=== PATIENT | male | born 1970 | race Caucasian/White ===

== ENCOUNTER 2020-04-16 13:51 | Emergency (ER) | payer OTHER ==
[~2020-04-16] VITALS: Ht 182.9 cm; Wt 90.7 kg
== END 2020-04-16 14:43 | disposition home or self-care (01) ==
LOC: ER 13:51
DX: S81.012A Laceration without foreign body, left knee, initial encounter (principal); W22.8XXA Striking against or struck by other objects, initial encounter; Y93.89 Activity, other specified; Y92.018 Other place in single-family (private) house as the place of occurrence of the external cause; Y99.8 Other external cause status

== ENCOUNTER 2020-09-16 15:36 | Outpatient (CLI) | payer OTHER | END 2020-09-16 15:52 | disposition home or self-care (01) | LOC: LAB 15:36 | DX: U07.1 COVID-19 (principal); R05 Cough; R06.02 Shortness of breath; R50.9 Fever, unspecified ==

== ENCOUNTER 2020-12-23 12:03 | Outpatient (CLI) | payer OTHER | END 2020-12-23 12:09 | disposition home or self-care (01) | LOC: LAB 12:03 | PROVIDERS: ATTEND Physical Medicine & Rehabilitation | DX: J12.82 Pneumonia due to coronavirus disease 2019 (principal); M35.81 Multisystem inflammatory syndrome; M35.89 Other specified systemic involvement of connective tissue; R05 Cough; R06.1 Stridor; R06.02 Shortness of breath; Z03.818 Encounter for observation for suspected exposure to other biological agents ruled out; Z20.822 Contact with and (suspected) exposure to COVID-19; Z11.52 Encounter for screening for COVID-19 ==

== ENCOUNTER 2021-04-23 11:22 | Outpatient (CLI) | payer OTHER | END 2021-04-23 11:45 | disposition home or self-care (01) | LOC: RAD 11:22 | PROVIDERS: ATTEND Orthopaedic Surgery | DX: M25.531 Pain in right wrist (principal) ==

== ENCOUNTER 2021-06-13 13:05 | Outpatient (CLI) | payer OTHER | END 2021-06-13 13:22 | disposition home or self-care (01) | LOC: RAD 13:05 | PROVIDERS: ATTEND Chiropractor | DX: M99.01 Segmental and somatic dysfunction of cervical region (principal); M99.02 Segmental and somatic dysfunction of thoracic region; M99.03 Segmental and somatic dysfunction of lumbar region ==

== ENCOUNTER 2022-05-13 12:33 | Outpatient (CLI) | payer OTHER ==
[~2022-05-13 12:33] MED LIST: ANUSOL-HC25 MG RECTAL; BENZONATATE150 MG PO; NABUMETONE500 MG PO; VALACYCLOVIR500 MG PO; ZITHROMAX TRI-500 MG PO; ZOLPIDEM TARTRA10 MG PO
== END 2022-05-13 15:09 | disposition home or self-care (01) ==
LOC: LAB 12:33
DX: E11.9 Type 2 diabetes mellitus without complications (principal); E34.9 Endocrine disorder, unspecified; E07.9 Disorder of thyroid, unspecified; E55.9 Vitamin D deficiency, unspecified; E53.9 Vitamin B deficiency, unspecified; I10 Essential (primary) hypertension; N30.00 Acute cystitis without hematuria; E78.5 Hyperlipidemia, unspecified; N40.0 Benign prostatic hyperplasia without lower urinary tract symptoms

== ENCOUNTER 2022-07-24 11:21 | Outpatient (CLI) | payer OTHER | END 2022-07-24 12:10 | disposition home or self-care (01) | LOC: LAB 11:21 | DX: E34.9 Endocrine disorder, unspecified (principal) ==

== ENCOUNTER 2023-10-28 10:27 | Outpatient (CLI) | payer OTHER ==
[~2023-10-28 10:27] MED LIST changes: +DICLOFENAC POTA50 MG PO; +DICLOFENAC SOD100 GM TOP; +METOPROLOL SUCC50 MG PO
== END 2023-10-28 10:28 | disposition home or self-care (01) ==
LOC: PRENATAL 10:27
PROVIDERS: ATTEND Obstetrics & Gynecology Maternal & Fetal Medicine
DX: Z76.1 Encounter for health supervision and care of foundling (principal)

== ENCOUNTER 2025-06-08 11:10 | Outpatient (CLI) | payer OTHER ==
[~2025-06-08 11:10] MED LIST changes: +HYZAAR 50-12.51 EACH PO; +SHINGRIX V50 MCG/0.5 IM
[2025-06-11] MEDS ORDERED: ZITHROMAX TRI-500 MG PO (11:21)
[2025-06-11] MEDS ORDERED: SHINGRIX V50 MCG/0.5 IM (11:21)
[2025-06-11] MEDS ORDERED: METOPROLOL SUCC50 MG PO (11:22)
== END 2025-06-08 11:12 | disposition home or self-care (01) ==
LOC: PRENATAL 11:10
PROVIDERS: ATTEND Obstetrics & Gynecology Maternal & Fetal Medicine
DX: Z00.00 Encounter for general adult medical examination without abnormal findings (principal)